=== PATIENT | female | born 1950 | race Caucasian/White ===

== ENCOUNTER → 2021-01-20 08:23 | Outpatient (BNVA) | payer MEDICARE, SELFPAY | PROVIDERS: Family Provider Family Medicine; PCP Family Medicine; Referring Provider Registered Nurse; Visit Provider Podiatrist Foot & Ankle Surgery | DX: M25.572 Pain in left ankle and joints of left foot (principal) | CPT/HCPCS: 73630 ==

== ENCOUNTER 2021-04-28 12:45 | Outpatient (CLI) | payer MEDICARE, SELFPAY | END 2021-04-28 12:46 | disposition home or self-care (01) | LOC: RAD 03-04 09:32 | PROVIDERS: PCP Family Medicine; Visit Provider Registered Nurse | DX: M79.672 Pain in left foot (principal); M21.612 Bunion of left foot | CPT/HCPCS: 73630 ==

== ENCOUNTER 2021-05-19 17:16 | Emergency (ER) | payer MEDICARE, SELFPAY ==
--- NOTE | 2021-05-19 17:30 | XRR_ITS ---
PROCEDURE INFORMATION: Exam: XR Chest Exam date and time: 05/19/2021 5:30 PM Age: 71 years old Clinical indication: Fever TECHNIQUE: Imaging protocol: XR of the chest. Views: 1 view. Total images: 1 COMPARISON: No relevant prior studies available. FINDINGS: Lungs: No visible active interstitial or alveolar airspace disease. Pleural spaces: Unremarkable. No pleural effusion. No pneumothorax. Heart/Mediastinum: Cardiac size upper limits of normal. Bones/joints: Mild scoliotic curvature. Osteopenia/osteoporosis. XR/XR chest 1V portable [id number] IMPRESSION: Nonacute.
[2021-05-19 17:33] VITALS: BP 126/66; PULSE 91; RESP 16; TEMP 37; O2SAT 95; BMI 16.5
--- NOTE | 2021-05-19 17:33 | W.ED.GENADLT ---
Documented by User: OCTAVIO Redding 05/19/21 20:14 HPI - General Adult General: Chief complaint: Urogenital-Female Stated complaint: FEVER, DEHYDRATION, AMS Time Seen by Provider: 05/19/21 17:30 History of Present Illness: HPI narrative: 71-year-old elderly lady brought in from home with concerns for confusion and fever. Review of the record notes that patient seen Dr. Becker, podiatry, on 28 April for a wound infection to the right johnson and left foot. At that time he prescribed home health for wound care and lower extremity wraps 3 times a week. Patient was seen by home health today and they found her to be confused prompting them to call EMS to transport her to the emergency department. Patient responds to questions but has a hard time finding the appropriate words to answer questions. Patient will follow commands loosely. Patient does have some asymmetry to the face on the right side. And patient also has some drifting noted to the right lower extremity. Patient does have just general body weakness though also. Patient is a poor historian and I have no other source of information. Associated symptoms: Reports confusion Review of Systems General: Reports: 10 or more systems reviewed and unremarkable except in HPI and below Neuro: Reports: weakness in extremities and confusion [facility] ED PFSH: Social History Smoking and tobacco status: never smoked Alcohol intake: current Alcohol intake frequency: 3 or more drinks per day Physical Exam Const: COMMON NORMALS: no acute distress and patient oriented x3 GENERAL APPEARANCE: cooperative HENMT: COMMON NORMALS: TM's normal bilaterally and Normal external nose present HEAD & SCALP: normal to inspection and other (Right side facial drooping) NOSE: Normal external nose present TYMPANIC MEMBRANE: TM's normal bilaterally MOUTH: Normal oral and palatal mucosa present THROAT: posterior oropharynx normal Eye: GENERAL EYE: appearance normal, both eyes and all related structures Neck/C-Spine: COMMON NORMALS: full ROM Lymph: LYMPHATIC: no lymphadenopathy noted Chest: COMMONS NORMALS: normal inspection of the chest Resp: COMMON NORMALS: normal respiratory effort EFFORT & INSPECTION: Yes able to speak in complete sentences Cardio: COMMON NORMALS: regular rate and regular rhythm RATE: regular rate RHYTHM: regular rhythm GI: COMMON NORMALS: non-tender : COMMON NORMALS: Yes no CVA tenderness BLADDER/KIDNEY EXAM: Yes no CVA tenderness Back/Pelvis: COMMON NORMALS: no CVA tenderness and thoracic and lumbar spine normal to inspection Extremity: NARRATIVE EXTREMITY EXAM: Weakness noted in the bilateral upper extremities, weakness noted in the right lower leg, Chronic wound noted between the third and fourth digit on the left foot with no significant redness surrounding the wound. Neuro: COMMON NORMALS: patient oriented x3 and moves all extremities Psych: COMMON NORMALS: cooperative Skin: COMMON NORMALS: no rashes or lesions noted GENERAL SKIN EXAM: no rashes or lesions noted Course ED course: 1799, discussed with Dr. Duncan he went and evaluated patient and feels patient either has a stroke syndrome, dementia or altered mental status due to infection. We will proceed with a ams/septic work-up and try to find a family member or other source of information. 1819, nursing was able to contact family, a daughter, they report that she has been having some increasing dementia over the last 6 months with episodes of confusion. They report that she has a history of alcoholism. 1944, reviewed abnormal EKG with Dr. Duncan and he recommended to review with Dr. Villatoro. baseline troponin 1900. 1951, believes EKG suggests NSTEMI at this time, ordered nitro paste 1/2 inch and aspirin. Vital Signs: Vital signs: Vital Signs Temperature 98.6 F 05/19/21 17:33 Pulse Rate 80 05/19/21 18:40 Respiratory Rate 15 05/19/21 18:40 Blood Pressure 126/64 05/19/21 18:40 Pulse Oximetry 94 05/19/21 18:40 MDM - General Adult MDM Narrative: Medical decision making narrative: Patient was brought in by EMS today for concerns of confusion and altered mental status. After talking with patient's daughter we found that patient has some problems with dementia and alcoholism. Review of the record noted that patient been being treated by Dr. Becker for a wound infection to the left foot. On exam wound was appearing to be healing. Patient was confused and concern for dementia versus infection related altered mental status versus stroke syndrome. Patient had some generalized body weakness drift in the right lower extremity and some asymmetry of the face. Vital signs were normal. Differential diagnosis includes stroke syndrome, dementia, sepsis, ACS. Laboratory values came back with a white count 13,000, urinalysis was clear, creatinine was 0.4, troponin was elevated at 1900, CK was elevated 1100, initial EKG noted a mild elevation in the ST in V1, V2, and V3 this was reviewed with Dr. Villatoro who is on-call for cardiology he felt the patient probably was more apt to be a NSTEMI. Patient will be admitted to care for NSTEMI and monitor for deterioration of condition. Dr. Ward was consulted and agreed to plan. Lab Data: Labs: Lab Results 05/19/21 05/19/21 05/19/21 Range/Units 18:10 18:30 18:30 WBC (4.0-10.0) 10^3/ uL RBC (4.1-5.3) 10^6/u L Hgb (11.5-15.3) g/dL Hct (37.0-47.0) % MCV (81-99) fL MCH (28.0-34.0) pg MCHC (30.0-36.0) g/dL RDW (12.1-15.1) % Plt Count (130-400) 10^3/c mm MPV (7.4-10.4) fL Neut % (Auto) % Lymph % (Auto) % Upton % (Auto) % Eos % (Auto) % Baso % (Auto) % Neut # (Auto) (1.8-7.7) 10^3/u L Lymph # (Auto) (0.8-4.8) 10^3/u L Upton # (Auto) (0.2-0.9) 10^3/u L Eos # (Auto) (0.0-0.8) 10^3/u L Baso # (Auto) (0.0-0.1) 10^3/u L Nucleated RBC % (a uto) % Nucleated RBCs # /100WBC PT (12.1-14.9) SECO NDS INR (0.8-1.2) APTT (23.9-36.7) SECO NDS Specimen Type Arterial Sample Site Brachial, right ABG pH 7.47 H (7.35-7.45) ABG pCO2 37.1 (35-45) mmHg ABG pO2 66.9 L (80.0-100.0) mmH g ABG HCO3 26.7 H (22-26) mmol/L ABG Base Excess 2.9 H (-2.0-2.0) mmol/ L Smith Test N/a Hematocrit 36.9 L (37-47) % O2 Delivery Device Room air FiO2 21.0 % Manufacturing Analyst ID glc Sodium (136-145) mmol/L Potassium (3.5-5.1) mmol/L Chloride (98-107) mmol/L Carbon Dioxide (22-29) mmol/L Anion Gap (5-19) BUN (8-23) mg/dL Creatinine (0.5-0.9) mg/dL GFR Calculation Glucose (65-115) mg/dL Calculated Osmolal ity (285-295) mOsm/k g Lactic Acid (0.5-2.2) mmol/L Calcium (8.5-10.5) mg/dL Total Bilirubin (0.15-1.2) mg/dL AST (0-32) U/L ALT (0-33) U/L Alkaline Phosphata se (35-105) IU/L Creatine Kinase (26-192) U/L Troponin T Baselin e (0-10) ng/L C-Reactive Protein (0.0-4.9) mg/L NT-Pro-B Natriuret Pep (0-125) pg/mL Total Protein (6.6-8.7) g/dL Albumin (3.5-5.2) g/dL Globulin (1.3-4.6) g/dL Urine Color Yellow (Yellow) Urine Appearance Clear (CLEAR) Urine pH 5 (5-7) Ur Specific Gravit y 1.020 (1.005-1.030) Urine Protein Trace (Negative) Urine Glucose (UA) Trace H (Normal) Urine Ketones 1+ H (Negative) Urine Blood Neg (Negative) Urine Nitrate Negative (Negative) Urine Bilirubin Neg (Negative) Urine Urobilinogen Norm (Negative) mg/dL Ur Leukocyte Destinee ase Negative (Negative) Urine RBC None (0-2) /hpf Urine WBC Rare (0-5) /hpf Ur Squamous Epith Cells None (0-5) /hpf Amorphous Sediment Not Reportable Urine Bacteria 1+ H (NONE) /hpf Hyaline Casts 0-4 H /lpf Coarse Granular Ca sts 0-4 H /lpf Urine Mucus Trace /hpf Ethyl Alcohol (0-10) mg/dL SARS-CoV-2 Ag (Rap id) Negative (Negative) 05/19/21 05/19/21 05/19/21 Range/Units 18:33 18:33 18:33 WBC 13.6 H (4.0-10.0) 10^3/ uL RBC 3.57 L (4.1-5.3) 10^6/u L Hgb 12.1 (11.5-15.3) g/dL Hct 36.2 L (37.0-47.0) % MCV 101.4 H (81-99) fL MCH 33.9 (28.0-34.0) pg MCHC 33.4 (30.0-36.0) g/dL RDW 13.4 (12.1-15.1) % Plt Count 211 (130-400) 10^3/c mm MPV 11.0 H (7.4-10.4) fL Neut % (Auto) 78.1 % Lymph % (Auto) 8.7 % Upton % (Auto) 12.5 % Eos % (Auto) 0.0 % Baso % (Auto) 0.1 % Neut # (Auto) 10.64 H (1.8-7.7) 10^3/u L Lymph # (Auto) 1.2 (0.8-4.8) 10^3/u L Upton # (Auto) 1.7 H (0.2-0.9) 10^3/u L Eos # (Auto) 0.0 (0.0-0.8) 10^3/u L Baso # (Auto) 0.0 (0.0-0.1) 10^3/u L Nucleated RBC % (a uto) 0 % Nucleated RBCs # 0.0 /100WBC PT (12.1-14.9) SECO NDS INR (0.8-1.2) APTT (23.9-36.7) SECO NDS Specimen Type Sample Site ABG pH (7.35-7.45) ABG pCO2 (35-45) mmHg ABG pO2 (80.0-100.0) mmH g ABG HCO3 (22-26) mmol/L ABG Base Excess (-2.0-2.0) mmol/ L Smith Test Hematocrit (37-47) % O2 Delivery Device FiO2 % Manufacturing Analyst ID Sodium 131 L (136-145) mmol/L Potassium 4.1 (3.5-5.1) mmol/L Chloride 98 (98-107) mmol/L Carbon Dioxide 19 L (22-29) mmol/L Anion Gap 18.1 (5-19) BUN 11 (8-23) mg/dL Creatinine 0.4 L (0.5-0.9) mg/dL GFR Calculation Not Reportable Glucose 94 (65-115) mg/dL Calculated Osmolal ity 271 L (285-295) mOsm/k g Lactic Acid (0.5-2.2) mmol/L Calcium 8.2 L (8.5-10.5) mg/dL Total Bilirubin 0.6 (0.15-1.2) mg/dL AST 128 H (0-32) U/L ALT 23 (0-33) U/L Alkaline Phosphata se 61 (35-105) IU/L Creatine Kinase 1170 H* (26-192) U/L Troponin T Baselin e 1976 H* (0-10) ng/L C-Reactive Protein 7.2 H (0.0-4.9) mg/L NT-Pro-B Natriuret Pep 35698 H (0-125) pg/mL Total Protein 5.9 L (6.6-8.7) g/dL Albumin 3.4 L (3.5-5.2) g/dL Globulin 2.5 (1.3-4.6) g/dL Urine Color (Yellow) Urine Appearance (CLEAR) Urine pH (5-7) Ur Specific Gravit y (1.005-1.030) Urine Protein (Negative) Urine Glucose (UA) (Normal) Urine Ketones (Negative) Urine Blood (Negative) Urine Nitrate (Negative) Urine Bilirubin (Negative) Urine Urobilinogen (Negative) mg/dL Ur Leukocyte Destinee ase (Negative) Urine RBC (0-2) /hpf Urine WBC (0-5) /hpf Ur Squamous Epith Cells (0-5) /hpf Amorphous Sediment Urine Bacteria (NONE) /hpf Hyaline Casts /lpf Coarse Granular Ca sts /lpf Urine Mucus /hpf Ethyl Alcohol < 10 (0-10) mg/dL SARS-CoV-2 Ag (Rap id) (Negative) 05/19/21 05/19/21 Range/Units 19:04 19:04 WBC (4.0-10.0) 10^3/ uL RBC (4.1-5.3) 10^6/u L Hgb (11.5-15.3) g/dL Hct (37.0-47.0) % MCV (81-99) fL MCH (28.0-34.0) pg MCHC (30.0-36.0) g/dL RDW (12.1-15.1) % Plt Count (130-400) 10^3/c mm MPV (7.4-10.4) fL Neut % (Auto) % Lymph % (Auto) % Upton % (Auto) % Eos % (Auto) % Baso % (Auto) % Neut # (Auto) (1.8-7.7) 10^3/u L Lymph # (Auto) (0.8-4.8) 10^3/u L Upton # (Auto) (0.2-0.9) 10^3/u L Eos # (Auto) (0.0-0.8) 10^3/u L Baso # (Auto) (0.0-0.1) 10^3/u L Nucleated RBC % (a uto) % Nucleated RBCs # /100WBC PT 14.10 (12.1-14.9) SECO NDS INR 1.06 (0.8-1.2) APTT 37.6 H (23.9-36.7) SECO NDS Specimen Type Sample Site ABG pH (7.35-7.45) ABG pCO2 (35-45) mmHg ABG pO2 (80.0-100.0) mmH g ABG HCO3 (22-26) mmol/L ABG Base Excess (-2.0-2.0) mmol/ L Smith Test Hematocrit (37-47) % O2 Delivery Device FiO2 % Manufacturing Analyst ID Sodium (136-145) mmol/L Potassium (3.5-5.1) mmol/L Chloride (98-107) mmol/L Carbon Dioxide (22-29) mmol/L Anion Gap (5-19) BUN (8-23) mg/dL Creatinine (0.5-0.9) mg/dL GFR Calculation Glucose (65-115) mg/dL Calculated Osmolal ity (285-295) mOsm/k g Lactic Acid 1.4 (0.5-2.2) mmol/L Calcium (8.5-10.5) mg/dL Total Bilirubin (0.15-1.2) mg/dL AST (0-32) U/L ALT (0-33) U/L Alkaline Phosphata se (35-105) IU/L Creatine Kinase (26-192) U/L Troponin T Baselin e (0-10) ng/L C-Reactive Protein (0.0-4.9) mg/L NT-Pro-B Natriuret Pep (0-125) pg/mL Total Protein (6.6-8.7) g/dL Albumin (3.5-5.2) g/dL Globulin (1.3-4.6) g/dL Urine Color (Yellow) Urine Appearance (CLEAR) Urine pH (5-7) Ur Specific Gravit y (1.005-1.030) Urine Protein (Negative) Urine Glucose (UA) (Normal) Urine Ketones (Negative) Urine Blood (Negative) Urine Nitrate (Negative) Urine Bilirubin (Negative) Urine Urobilinogen (Negative) mg/dL Ur Leukocyte Destinee ase (Negative) Urine RBC (0-2) /hpf Urine WBC (0-5) /hpf Ur Squamous Epith Cells (0-5) /hpf Amorphous Sediment Urine Bacteria (NONE) /hpf Hyaline Casts /lpf Coarse Granular Ca sts /lpf Urine Mucus /hpf Ethyl Alcohol (0-10) mg/dL SARS-CoV-2 Ag (Rap id) (Negative) EKG Data^: EKG 1: Attestation: I personally reviewed and interpreted this EKG as follows: (190, EKG shows a sinus rhythm, T wave abnormality noted in V1 V2 and V3, old inferior myocardial infarction is noted per computer interpretation, no ectopy is noted. Regular rate at 90 bpm is noted. No prior EKG is available for comparison at this time.) Computer generated interpretation: Chest X-Ray 05/19/21 17:30 IMPRESSION: Nonacute. Head CT 05/19/21 17:48 IMPRESSION: No evidence of active or acute intracranial pathologic process, hemorrhage, or trauma. Radiation Dose CTDIVOL = (mGy): DLP = 816.67 (mGy-cm) Foot X-Ray 05/19/21 18:19 IMPRESSION: No radiographically visible acute osseous abnormality. Discharge Plan Discharge Patient Disposition: Admitted As Inpatient Clinical Impression: Non-ST elevation [place] (NSTEMI), Dementia, Confusion, Elevated brain natriuretic peptide (BNP) level, Acute non-ST elevation myocardial infarction (NSTEMI) Chronic dementia Qualifiers: Dementia behavioral disturbance: without behavioral disturbance Qualified Code(s): F03.90 - Unspecified dementia without behavioral disturbance Condition: Stable Coding Level of Care Code ED Audiology Assistant for Chg Fwd Exam Comprehensive Documented by User: Med Duncan MD 05/19/21 20:10 HPI - General Adult General: Chief complaint: Urogenital-Female Stated complaint: FEVER, DEHYDRATION, AMS Time Seen by Provider: 05/19/21 17:30 PFSH ED PFSH: Social History Smoking and tobacco status: never smoked Alcohol intake: current Alcohol intake frequency: 3 or more drinks per day Course Consultations: Consultation #1: I discussed at length with . He request the patient be given Lovenox 40 mg subcu. He will see patient write additional orders Time: 20:09 Vital Signs: Vital signs: Vital Signs Temperature 98.6 F 05/19/21 17:33 Pulse Rate 80 05/19/21 18:40 Respiratory Rate 15 05/19/21 18:40 Blood Pressure 126/64 05/19/21 18:40 Pulse Oximetry 94 05/19/21 18:40 MDM - General Adult Lab Data: Labs: Lab Results 05/19/21 05/19/21 05/19/21 Range/Units 18:10 18:30 18:30 WBC (4.0-10.0) 10^3/ uL RBC (4.1-5.3) 10^6/u L Hgb (11.5-15.3) g/dL Hct (37.0-47.0) % MCV (81-99) fL MCH (28.0-34.0) pg MCHC (30.0-36.0) g/dL RDW (12.1-15.1) % Plt Count (130-400) 10^3/c mm MPV (7.4-10.4) fL Neut % (Auto) % Lymph % (Auto) % Upton % (Auto) % Eos % (Auto) % Baso % (Auto) % Neut # (Auto) (1.8-7.7) 10^3/u L Lymph # (Auto) (0.8-4.8) 10^3/u L Upton # (Auto) (0.2-0.9) 10^3/u L Eos # (Auto) (0.0-0.8) 10^3/u L Baso # (Auto) (0.0-0.1) 10^3/u L Nucleated RBC % (a uto) % Nucleated RBCs # /100WBC PT (12.1-14.9) SECO NDS INR (0.8-1.2) APTT (23.9-36.7) SECO NDS Specimen Type Arterial Sample Site Brachial, right ABG pH 7.47 H (7.35-7.45) ABG pCO2 37.1 (35-45) mmHg ABG pO2 66.9 L (80.0-100.0) mmH g ABG HCO3 26.7 H (22-26) mmol/L ABG Base Excess 2.9 H (-2.0-2.0) mmol/ L Smith Test N/a Hematocrit 36.9 L (37-47) % O2 Delivery Device Room air FiO2 21.0 % Manufacturing Analyst ID glc Sodium (136-145) mmol/L Potassium (3.5-5.1) mmol/L Chloride (98-107) mmol/L Carbon Dioxide (22-29) mmol/L Anion Gap (5-19) BUN (8-23) mg/dL Creatinine (0.5-0.9) mg/dL GFR Calculation Glucose (65-115) mg/dL Calculated Osmolal ity (285-295) mOsm/k g Lactic Acid (0.5-2.2) mmol/L Calcium (8.5-10.5) mg/dL Total Bilirubin (0.15-1.2) mg/dL AST (0-32) U/L ALT (0-33) U/L Alkaline Phosphata se (35-105) IU/L Creatine Kinase (26-192) U/L Troponin T Baselin e (0-10) ng/L C-Reactive Protein (0.0-4.9) mg/L NT-Pro-B Natriuret Pep (0-125) pg/mL Total Protein (6.6-8.7) g/dL Albumin (3.5-5.2) g/dL Globulin (1.3-4.6) g/dL Urine Color Yellow (Yellow) Urine Appearance Clear (CLEAR) Urine pH 5 (5-7) Ur Specific Gravit y 1.020 (1.005-1.030) Urine Protein Trace (Negative) Urine Glucose (UA) Trace H (Normal) Urine Ketones 1+ H (Negative) Urine Blood Neg (Negative) Urine Nitrate Negative (Negative) Urine Bilirubin Neg (Negative) Urine Urobilinogen Norm (Negative) mg/dL Ur Leukocyte Destinee ase Negative (Negative) Urine RBC None (0-2) /hpf Urine WBC Rare (0-5) /hpf Ur Squamous Epith Cells None (0-5) /hpf Amorphous Sediment Not Reportable Urine Bacteria 1+ H (NONE) /hpf Hyaline Casts 0-4 H /lpf Coarse Granular Ca sts 0-4 H /lpf Urine Mucus Trace /hpf Ethyl Alcohol (0-10) mg/dL SARS-CoV-2 Ag (Rap id) Negative (Negative) 05/19/21 05/19/21 05/19/21 Range/Units 18:33 18:33 18:33 WBC 13.6 H (4.0-10.0) 10^3/ uL RBC 3.57 L (4.1-5.3) 10^6/u L Hgb 12.1 (11.5-15.3) g/dL Hct 36.2 L (37.0-47.0) % MCV 101.4 H (81-99) fL MCH 33.9 (28.0-34.0) pg MCHC 33.4 (30.0-36.0) g/dL RDW 13.4 (12.1-15.1) % Plt Count 211 (130-400) 10^3/c mm MPV 11.0 H (7.4-10.4) fL Neut % (Auto) 78.1 % Lymph % (Auto) 8.7 % Upton % (Auto) 12.5 % Eos % (Auto) 0.0 % Baso % (Auto) 0.1 % Neut # (Auto) 10.64 H (1.8-7.7) 10^3/u L Lymph # (Auto) 1.2 (0.8-4.8) 10^3/u L Upton # (Auto) 1.7 H (0.2-0.9) 10^3/u L Eos # (Auto) 0.0 (0.0-0.8) 10^3/u L Baso # (Auto) 0.0 (0.0-0.1) 10^3/u L Nucleated RBC % (a uto) 0 % Nucleated RBCs # 0.0 /100WBC PT (12.1-14.9) SECO NDS INR (0.8-1.2) APTT (23.9-36.7) SECO NDS Specimen Type Sample Site ABG pH (7.35-7.45) ABG pCO2 (35-45) mmHg ABG pO2 (80.0-100.0) mmH g ABG HCO3 (22-26) mmol/L ABG Base Excess (-2.0-2.0) mmol/ L Smith Test Hematocrit (37-47) % O2 Delivery Device FiO2 % Manufacturing Analyst ID Sodium 131 L (136-145) mmol/L Potassium 4.1 (3.5-5.1) mmol/L Chloride 98 (98-107) mmol/L Carbon Dioxide 19 L (22-29) mmol/L Anion Gap 18.1 (5-19) BUN 11 (8-23) mg/dL Creatinine 0.4 L (0.5-0.9) mg/dL GFR Calculation Not Reportable Glucose 94 (65-115) mg/dL Calculated Osmolal ity 271 L (285-295) mOsm/k g Lactic Acid (0.5-2.2) mmol/L Calcium 8.2 L (8.5-10.5) mg/dL Total Bilirubin 0.6 (0.15-1.2) mg/dL AST 128 H (0-32) U/L ALT 23 (0-33) U/L Alkaline Phosphata se 61 (35-105) IU/L Creatine Kinase 1170 H* (26-192) U/L Troponin T Baselin e 1976 H* (0-10) ng/L C-Reactive Protein 7.2 H (0.0-4.9) mg/L NT-Pro-B Natriuret Pep 93537 H (0-125) pg/mL Total Protein 5.9 L (6.6-8.7) g/dL Albumin 3.4 L (3.5-5.2) g/dL Globulin 2.5 (1.3-4.6) g/dL Urine Color (Yellow) Urine Appearance (CLEAR) Urine pH (5-7) Ur Specific Gravit y (1.005-1.030) Urine Protein (Negative) Urine Glucose (UA) (Normal) Urine Ketones (Negative) Urine Blood (Negative) Urine Nitrate (Negative) Urine Bilirubin (Negative) Urine Urobilinogen (Negative) mg/dL Ur Leukocyte Destinee ase (Negative) Urine RBC (0-2) /hpf Urine WBC (0-5) /hpf Ur Squamous Epith Cells (0-5) /hpf Amorphous Sediment Urine Bacteria (NONE) /hpf Hyaline Casts /lpf Coarse Granular Ca sts /lpf Urine Mucus /hpf Ethyl Alcohol < 10 (0-10) mg/dL SARS-CoV-2 Ag (Rap id) (Negative) 05/19/21 05/19/21 Range/Units 19:04 19:04 WBC (4.0-10.0) 10^3/ uL RBC (4.1-5.3) 10^6/u L Hgb (11.5-15.3) g/dL Hct (37.0-47.0) % MCV (81-99) fL MCH (28.0-34.0) pg MCHC (30.0-36.0) g/dL RDW (12.1-15.1) % Plt Count (130-400) 10^3/c mm MPV (7.4-10.4) fL Neut % (Auto) % Lymph % (Auto) % Upton % (Auto) % Eos % (Auto) % Baso % (Auto) % Neut # (Auto) (1.8-7.7) 10^3/u L Lymph # (Auto) (0.8-4.8) 10^3/u L Upton # (Auto) (0.2-0.9) 10^3/u L Eos # (Auto) (0.0-0.8) 10^3/u L Baso # (Auto) (0.0-0.1) 10^3/u L Nucleated RBC % (a uto) % Nucleated RBCs # /100WBC PT 14.10 (12.1-14.9) SECO NDS INR 1.06 (0.8-1.2) APTT 37.6 H (23.9-36.7) SECO NDS Specimen Type Sample Site ABG pH (7.35-7.45) ABG pCO2 (35-45) mmHg ABG pO2 (80.0-100.0) mmH g ABG HCO3 (22-26) mmol/L ABG Base Excess (-2.0-2.0) mmol/ L Smith Test Hematocrit (37-47) % O2 Delivery Device FiO2 % Manufacturing Analyst ID Sodium (136-145) mmol/L Potassium (3.5-5.1) mmol/L Chloride (98-107) mmol/L Carbon Dioxide (22-29) mmol/L Anion Gap (5-19) BUN (8-23) mg/dL Creatinine (0.5-0.9) mg/dL GFR Calculation Glucose (65-115) mg/dL Calculated Osmolal ity (285-295) mOsm/k g Lactic Acid 1.4 (0.5-2.2) mmol/L Calcium (8.5-10.5) mg/dL Total Bilirubin (0.15-1.2) mg/dL AST (0-32) U/L ALT (0-33) U/L Alkaline Phosphata se (35-105) IU/L Creatine Kinase (26-192) U/L Troponin T Baselin e (0-10) ng/L C-Reactive Protein (0.0-4.9) mg/L NT-Pro-B Natriuret Pep (0-125) pg/mL Total Protein (6.6-8.7) g/dL Albumin (3.5-5.2) g/dL Globulin (1.3-4.6) g/dL Urine Color (Yellow) Urine Appearance (CLEAR) Urine pH (5-7) Ur Specific Gravit y (1.005-1.030) Urine Protein (Negative) Urine Glucose (UA) (Normal) Urine Ketones (Negative) Urine Blood (Negative) Urine Nitrate (Negative) Urine Bilirubin (Negative) Urine Urobilinogen (Negative) mg/dL Ur Leukocyte Destinee ase (Negative) Urine RBC (0-2) /hpf Urine WBC (0-5) /hpf Ur Squamous Epith Cells (0-5) /hpf Amorphous Sediment Urine Bacteria (NONE) /hpf Hyaline Casts /lpf Coarse Granular Ca sts /lpf Urine Mucus /hpf Ethyl Alcohol (0-10) mg/dL SARS-CoV-2 Ag (Rap id) (Negative) EKG Data^: EKG 1: Computer generated interpretation: Chest X-Ray 05/19/21 17:30 IMPRESSION: Nonacute. Head CT 05/19/21 17:48 IMPRESSION: No evidence of active or acute intracranial pathologic process, hemorrhage, or trauma. Radiation Dose CTDIVOL = (mGy): DLP = 816.67 (mGy-cm) Foot X-Ray 05/19/21 18:19 IMPRESSION: No radiographically visible acute osseous abnormality. Discharge Plan Discharge Patient Disposition: Admitted As Inpatient Clinical Impression: Non-ST elevation [place] (NSTEMI), Dementia, Confusion, Elevated brain natriuretic peptide (BNP) level, Acute non-ST elevation myocardial infarction (NSTEMI) Chronic dementia Qualifiers: Dementia behavioral disturbance: without behavioral disturbance Qualified Code(s): F03.90 - Unspecified dementia without behavioral disturbance Condition: Stable Coding Level of Care Code ED Audiology Assistant for [facility] Fwd Exam Comprehensive
--- NOTE | 2021-05-19 17:48 | CTR_ITS ---
PROCEDURE INFORMATION: Exam: CT Head Without Contrast Exam date and time: 05/19/2021 5:48 PM Age: 71 years old Clinical indication: Altered mental status/memory loss; Additional info: AMS TECHNIQUE: Imaging protocol: Computed tomography of the head without contrast. Total images: 208 Radiation optimization: All CT scans at this facility use at least one of these dose optimization techniques: automated exposure control; mA and/or kV adjustment per patient size (includes targeted exams where dose is matched to clinical indication); or iterative reconstruction. COMPARISON: No relevant prior studies available. RADIATION DOSE METRICS: Total DLP (mGy-cm): 816.67 FINDINGS: Brain: No evidence of active or acute intracranial pathologic process, hemorrhage, or trauma. Moderate small vessel ischemic disease with senile periventricular leukomalacia. No hyperdense MCA or insular ribbon sign. No mass effect. No midline shift. No cerebral edema. Cerebral and cerebellar atrophy with ventricular dilatation greater than that anticipated for patient's chronological age. Cerebral arteriosclerosis. Cerebral ventricles: No ventriculomegaly. Paranasal sinuses: Visualized sinuses are unremarkable. No fluid levels. Mastoid air cells: Visualized mastoid air cells are well aerated. Bones/joints: Unremarkable. No acute fracture. Soft tissues: Unremarkable. CT/CT head wo con* [id number] IMPRESSION: No evidence of active or acute intracranial pathologic process, hemorrhage, or trauma. Radiation Dose CTDIVOL = (mGy): DLP = 816.67 (mGy-cm)
[2021-05-19] MEDS: sodium chloride 0.9% 500 ML 999 ML IV (17:50)
--- NOTE | 2021-05-19 18:02 | ECG_ITS ---
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1950 Requested By: Gilmer Monge Order Number: [id number] Reading MD: YONAS MATTHEW Measurements Intervals [place] Rate: 90 P: 48 IN: 140 QRS: 0 QRSD: 100 T: 95 QT: 406 QTc: 497 Interpretive Statements SINUS RHYTHM INFERIOR MYOCARDIAL INFARCTION [40+ ms Q WAVE AND/OR ST/T ABNORMALITY IN II/aVF], PROBABLY OLD MODERATE T-WAVE ABNORMALITY, CONSIDER ANTERIOR ISCHEMIA [-0.1+ mV T WAVE IN V3/V4] No previous ECG available for comparison Electronically Signed On 05-19-2021 23:33:45 CDT by YONAS MATTHEW [email or web address] of [email or web address] medical centerJohn's Incredible [email or web address] Companyking's daughters [facility] [email or web address]/store/[id number] f
--- NOTE | 2021-05-19 18:19 | XRR_ITS ---
PROCEDURE INFORMATION: Exam: XR Left Foot Exam date and time: 05/19/2021 6:19 PM Age: 71 years old Clinical indication: Other: Wound infection TECHNIQUE: Imaging protocol: XR Left foot. Views: 3 or more views. Total images: 3 COMPARISON: CR XR foot LT min 3V* [id number] 04/28/2021 10:20 AM FINDINGS: Bones/joints: No radiographically visible acute osseous abnormality. No radiographically visible osteolytic destructive process. Osteoporosis. Mild primary osteoarthritis of the hallux. Hammertoe deformities. Hallux valgus. Soft tissues: Soft tissues without evidence of edema, swelling, contusion, emphysema, or radiopaque foreign body. XR/XR foot LT min 3V* [id number] IMPRESSION: No radiographically visible acute osseous abnormality.
[2021-05-19 18:22] LABS: ABG PCO2 37.1 mmHg (35-45); ABG PH Result 7.47 (7.35-7.45); Arterial Blood Gas Hematocrit 36.9 % (37-47); Base Excess ABG 2.9 mmol/L (-2.0-2.0); Blood Gas Operator Identificat glc; Blood Gas Sample Site Brachial, right; Blood Gas Sample Type Arterial; HCO3 ABG 26.7 mmol/L (22-26); Oxygen Device ROOM AIR; PO2 ABG 66.9 mmHg (80.0-100.0)
--- NOTE | 2021-05-19 18:30 | PC.NURSE ---
This RN spoke with pt's daughter, who sts for the last 6 months pt has had a progressive mental decline, with increased periods of confusion, increased falls r/t alcoholism. She sts the pt has been avoiding the family b/c she is afraid they are going to put her in assisted living, which is what they are trying to do because she cannot take care of herself or make healthy choices. The daughter says they contacted social work coordinator recently and are trying to get her help.
[2021-05-19 18:40] VITALS: BP 126/64; PULSE 80; RESP 15; O2SAT 94
[2021-05-19 18:58] LABS: Basophils % 0.1 %; Hematocrit 36.2 % (37.0-47.0); Hemoglobin 12.1 g/dL (11.5-15.3); Lymphocytes # 1.2 10^3/uL (0.8-4.8); Lymphocytes % 8.7 %; Mean Corpuscular HGB Conc 33.4 g/dL (30.0-36.0); Mean Corpuscular Hemoglobin 33.9 pg (28.0-34.0); Mean Corpuscular Volume 101.4 fL (81-99); Monocytes # 1.7 10^3/uL (0.2-0.9); Monocytes % 12.5 %; Neutrophils # 10.64 10^3/uL (1.8-7.7); Neutrophils % 78.1 %; Nucleated Red Blood Cells % 0 %; Platelet Count 211 10^3/cmm (130-400); Red Blood Count 3.57 10^6/uL (4.1-5.3); Red Cell Distribution Width 13.4 % (12.1-15.1); White Blood Count 13.6 10^3/uL (4.0-10.0)
--- NOTE | 2021-05-19 19:07 | PC.NURSE ---
Report from EMANUEL Flaherty
[2021-05-19 19:12] LABS: Glucose Urine UA Trace (Normal); Protein Urine Trace (Negative); Urine Appearance Clear (CLEAR); Urine Color Yellow (Yellow); pH Urine 5 (5-7)
[2021-05-19 19:13] LABS: Add Urine Culture? No; Add Urine Microscopic? YES; Bacteria Urine 1+ /hpf; Bilirubin Urine Neg (Negative); Blood Urine Neg (Negative); Coarse Granular Casts Urine 0-4 /lpf; Hyaline Casts Urine 0-4 /lpf; Ketones Urine 1+ (Negative); Leukocyte Esterase Urine Negative (Negative); Mucus Urine TRACE /hpf; Nitrate Urine Negative (Negative); Urobilinogen Urine Norm (Negative); WBC Urine RARE /hpf (0-5)
[2021-05-19 19:24] LABS: INR 1.06 (0.8-1.2)
[2021-05-19 19:25] LABS: SARS Covid-2 Antigen Negative (Negative)
[2021-05-19 19:25] LABS: Partial Thromboplastin Time 37.6 SECONDS (23.9-36.7)
[2021-05-19 19:30] LABS: Lactic Sepsis W/Reflex 1.4 mmol/L (0.5-2.2)
[2021-05-19 19:34] LABS: Troponin(5th) Baseline 1976 ng/L (0-10)
[2021-05-19 19:51] LABS: Alanine Aminotransferase 23 U/L (0-33); Albumin Level 3.4 g/dL (3.5-5.2); Alkaline Phosphatase 61 IU/L (35-105); Blood Urea Nitrogen 11 mg/dL (8-23); C Reactive Protein 7.2 mg/L (0.0-4.9); Calcium 8.2 mg/dL (8.5-10.5); Carbon Dioxide 19 mmol/L (22-29); Chloride 98 mmol/L (98-107); Globulin 2.5 g/dL (1.3-4.6); Glucose 94 mg/dL (65-115); NT Pro B Type Natriuretic Pept 12884 pg/mL (0-125); Total Bilirubin 0.6 mg/dL (0.15-1.2); Total Protein 5.9 g/dL (6.6-8.7)
[2021-05-19 19:57] LABS: Osmolality Calculated 271 mOsm/kg (285-295); Sodium 131 mmol/L (136-145)
[2021-05-19 19:58] LABS: Creatinine Clr Calc Pharmacy 40.3623
[2021-05-19 20:00] LABS: Alcohol Level < 10 mg/dL (0-10); Anion Gap 18.1 (5-19); Aspartate Amino Transferase 128 U/L (0-32); Creatine Phosphokinase 1170 U/L (26-192); Potassium 4.1 mmol/L (3.5-5.1)
[2021-05-19] MEDS: aspirin 81 mg Chew Tablet 324 MG PO (20:01)
[2021-05-19] MEDS: nitroglycerin 1 gm/inch oint Pkt 0.5 INCH TOPICAL (20:01)
--- NOTE | 2021-05-19 20:02 | ECG_ITS ---
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1950 Requested By: Gilmer Monge Order Number: [id number] Reading MD: YONAS MATTHEW Measurements Intervals [place] Rate: 88 P: 53 IL: 170 QRS: 1 QRSD: 97 T: 85 QT: 407 QTc: 495 Interpretive Statements SINUS RHYTHM POSSIBLE LEFT ATRIAL ENLARGEMENT [-0.1mV P WAVE IN V1/V2] POSSIBLE INFERIOR MYOCARDIAL INFARCTION [30 ms Q WAVE IN II/aVF], PROBABLY OLD MARKED T-WAVE ABNORMALITY, CONSIDER ANTERIOR ISCHEMIA [-0.5+ mV T WAVE IN V3/V4] Compared to ECG 05/19/2021 18:58:03 No significant changes Electronically Signed On 05-19-2021 23:36:29 CDT by YONAS MATTHEW [id number]
--- NOTE | 2021-05-19 20:15 | PC.NURSE ---
Daughter arrived in room. Dr. Ward at bedside.
[2021-05-19 20:19] VITALS: BP 141/87; PULSE 84; RESP 16; O2SAT 95
--- NOTE | 2021-05-19 20:34 | PM.HP ---
Providers/Chief Complaint Primary Care Provider: Saritha Peace DO Chief Complaint: FEVER, DEHYDRATION, AMS History of Present Illness Ada Manning is a 71 year old female who has history of severe dementia, presented today with chief complaint of worsening confusion. Daughter is at the bedside who is endorsing that because of her worsening functional status she was brought near her family. On Wednesday her son took her out for lunch and at that time she seemed to be around her baseline. And today when home health nurse checked on her she seemed very confused. She was sent to the hospital for evaluation. Patient is not able to provide any valuable information. She is denying chest pain, shortness of breath nausea or vomiting. She follows up with podiatry for her chronic wounds. Home health nurse checks on her wounds on weekly basis. Her last well-known time was around Wednesday. Diagnostics in the ER revealed right-sided weakness, right-sided facial droop, non-ST segment elevation [place] without ischemic or infarct changes, she seemed very confused only oriented to herself, not a candidate for any intervention troponin 1900, Covid antigen negative, she saturating well on room air, afebrile, CT head unremarkable, chest x-ray, UA unremarkable Review of Systems General: Reports: ROS unobtainable due to medical condition (Dementia) Medications/Allergies Home Medications Medication Instructions Recorded Confirmed Last Taken Type acamprosate 333 mg tablet,delayed 333 mg PO TID tab 01/20/21 05/19/21 Unknown History release bupropion HCl 75 mg tablet 75 mg PO BID 01/20/21 05/19/21 Unknown History lisinopril 10 mg tablet 10 mg PO DAILY 01/20/21 05/19/21 Unknown History meloxicam 15 mg tablet 15 mg PO DAILY #30 tab 01/20/21 05/19/21 Unknown Rx simvastatin 20 mg tablet 20 mg PO DAILY 01/20/21 05/19/21 Unknown History trazodone 50 mg tablet 50 mg PO DAILY 01/20/21 05/19/21 Unknown History ciprofloxacin HCl 500 mg tablet 500 mg PO BID #14 tab 04/28/21 05/19/21 Unknown Rx clindamycin HCl 300 mg capsule 300 mg PO TID #21 cap 04/28/21 05/19/21 Unknown Rx Allergies Allergy/AdvReac Type Severity Reaction Status Date / Time Penicillins Allergy unknown Verified 04/28/21 09:53 PFSH Acute PFSH: Medical History Chronic dementia Chronic ulcer of left foot with fat layer exposed CVA (cerebral vascular accident) Dementia Hypercholesteremia Hypertension Leg wound, left PVD (peripheral vascular disease) Right arm fracture Surgical History History of surgery on arm Social History Smoking and tobacco status: never smoked Alcohol intake: current Alcohol intake frequency: 3 or more drinks per day Vitals/I&O/Wt Last Vital Signs Temp 98.6 F 05/19/21 17:33 Pulse 84 05/19/21 20:19 Resp 16 05/19/21 20:19 BP 141/87 05/19/21 20:19 Pulse Ox 95 05/19/21 20:19 05/19/21 05/19/21 05/19/21 06:59 14:59 22:59 Intake Total 500 / 500 Balance 500 / 500 Weight last 48 hrs Weight 40.823 kg Physical Exam Narrative: EXAM NARRATIVE: Frail elderly female She is keeping her left eye closed, Right-sided facial droop, flat right nasolabial fold Weakness of right arm and right leg noted, EOMI, PERRLA Oriented to herself only S1, S2 no murmur appreciated Clinically looks dehydrated No acute respite distress no audible stridor or wheezing Lower extremity multiple laceration and wounds, no active cellulitis No joint swelling Urinary Catheter Management^: Mendoza: Cath Placed During This Visit: yes Urinary Catheter Date of Insertion: 05/19/21 Urinary Catheter Time of Insertion: 18:39 Data : 05/19/21 18:33 05/19/21 18:33 Micro: Microbiology 05/19/21 18:33 Blood Culture - Preliminary Blood SPECIMEN COLLECTED 05/19/21 18:33 Blood Culture - Preliminary Blood SPECIMEN COLLECTED A&P Assessment and plan (1) Non-ST elevation [place] (NSTEMI): (2) Confusion: Status: Acute (3) Acute non-ST elevation myocardial infarction (NSTEMI): Status: Acute Additional A&P Information Acute stroke NIH 6 PT/OT eval Start dual antiplatelet therapy and high-dose statins Please reevaluate in the morning if MRI would have any merit for evaluation of her stroke which might not change her management This seems to be the etiology of acute worsening of her confusion, last known well time around Wednesday Not a TPA candidate Non-STEMI Considering dementia not a candidate for any intervention as per ER discussion with cardiology We will start Lovenox therapeutic regimen Request echo in the morning Currently hemodynamically stable Baseline dementia, Acute worsening secondary to stroke Chest x-ray, UA unremarkable Full code goals of care discussed with the daughter who is her DPOA We will keep her on thickened pur?ed diet for now PT evaluation DVT prophylaxis currently on therapeutic Lovenox Attestations Medical Necessity Statement*: Anticipating stay in the hospital cross more than 2 midnights for management of NSTEMI and work-up of stroke Time Spent in Patient Care: 16 - 35 minutes Coding Level of Care Code Acute Biometrics Experimentalist for Wang Fwd Diagnoses Non-ST elevation IA (NSTEMI) I21.4 Confusion R41.0 Acute non-ST elevation myocardial infarction (NSTEMI) I21.4
[2021-05-19 21:59] VITALS: BP 144/83; PULSE 82; RESP 16; O2SAT 95
[2021-05-19 22:01] LABS: Troponin 5 2HR 1629 ng/L (0-10)
[2021-05-19] MEDS: enoxaparin 40 mg/0.4 mL Syringe SUBCUT (22:25)
--- NOTE | 2021-05-19 22:31 | PC.NURSE ---
Pt resting, eyes closed; easily awakened. Pt denies needs at this time. Will continue to monitor.
[2021-05-19 22:59] LABS: Thyroid Stimulating Hormone 0.72 uIU/mL (0.27-4.20); Vitamin B12 639 pg/mL (232-1245)
[2021-05-19 23:08] VITALS: BP 137/80; PULSE 83; RESP 16; O2SAT 95
[2021-05-20 01:08] LABS: Troponin 5 6HR 1256 ng/L (0-10)
[2021-05-20 01:17] VITALS: BP 144/74; PULSE 80; RESP 16; O2SAT 92
[2021-05-20 03:09] VITALS: BP 135/76; PULSE 81; RESP 16; O2SAT 95
--- NOTE | 2021-05-20 03:29 | PC.NURSE ---
Obtained verbal consent from daughter Jorge Fernando via telephone to transfer pt to [facility]. Verbal phone consent verified by this RN and second RN Yazmin Cloud.
[2021-05-20 04:14] VITALS: BP 147/79; PULSE 79; RESP 16; O2SAT 95
--- NOTE | 2021-05-20 07:02 | P.TS_ITS ---
Transfer Summary Providers Date of Discharge: 05/20/21 Primary Care Provider: Saritha Peace DO Anticipated Date of Transfer: Anticipated date of transfer: 05/20/21 Receiving Facility & Provider: Receiving Provider: [] Receiving facility: [] Diagnoses at Discharge Discharge Diagnosis (1) Non-ST elevation [place] (NSTEMI): (2) Confusion: Status: Acute (3) Acute non-ST elevation myocardial infarction (NSTEMI): Status: Acute Reason for Visit Reason for Visit: FEVER, DEHYDRATION, AMS Hospital Course Hospital Course Ada Manning is a 71 year old female who has history of severe dementia, heavy alcoholic, presented today with chief complaint of worsening confusion. Daughter is at the bedside who is endorsing that because of her worsening functional status she was brought near her family. On Wednesday her son took her out for lunch and at that time she seemed to be around her baseline. And today when home health nurse checked on her she seemed very confused. She was sent to the hospital for evaluation. Patient is not able to provide any valuable information. She is denying chest pain, shortness of breath nausea or vomiting. She follows up with podiatry for her chronic wounds. Home health nurse checks on her wounds on weekly basis. Her last well-known time was around Wednesday. Diagnostics in the ER revealed right-sided weakness, right-sided facial droop, non-ST segment elevation [place] without ischemic or infarct changes, she seemed very confused only oriented to herself, not a candidate for any intervention troponin 1900, Covid antigen negative, she saturating well on room air, afebrile, CT head unremarkable, chest x-ray, UA unremarkable [facility] [place] had no bed available and she was transferred to outside facility. She was accepted by Dr. Levy at [facility] for management of non-ST segment elevation [place], acute stroke, delirium Physical Exam Narrative: EXAM NARRATIVE: Frail elderly female She is keeping her left eye closed, Right-sided facial droop, flat right nasolabial fold Weakness of right arm and right leg noted, EOMI, PERRLA Oriented to herself only S1, S2 no murmur appreciated Clinically looks dehydrated No acute respite distress no audible stridor or wheezing Lower extremity multiple laceration and wounds, no active cellulitis No joint swelling Urinary Catheter Management^: Mendoza: Cath Placed During This Visit: yes Urinary Catheter Date of Insertion: 05/19/21 Urinary Catheter Time of Insertion: 18:39 TS Data Data Completed and Pending: Completed Studies During Hospitalization Category Date Time Status CT head wo con* 7 0450 Urgent Cat Scan 05/19/21 17:48 Completed XR chest 1V mahamed ble [id number] Stat Exams 05/19/21 17:30 Completed XR foot LT min 3V * [id number] Stat Exams 05/19/21 18:19 Completed Pending at discharge Category Date Time Status Blood Culture Sta t Lab 05/19/21 18:33 Results Labs from last 24 hours 05/20/21 05/19/21 05/19/21 00:14 21:15 21:15 WBC RBC Hgb Hct MCV MCH MCHC RDW Plt Count MPV Neut % (Auto) Lymph % (Auto) Dickson % (Auto) Eos % (Auto) Baso % (Auto) Neut # (Auto) Lymph # (Auto) Dickson # (Auto) Eos # (Auto) Baso # (Auto) Nucleated RBC % (a uto) Nucleated RBCs # PT INR APTT Specimen Type Sample Site ABG pH ABG pCO2 ABG pO2 ABG HCO3 ABG Base Excess Smith Test Hematocrit O2 Delivery Device FiO2 Archery Instructor ID Sodium Potassium Chloride Carbon Dioxide Anion Gap BUN Creatinine GFR Calculation Glucose Calculated Osmolal ity Lactic Acid Calcium Total Bilirubin AST ALT Alkaline Phosphata se Creatine Kinase Troponin T Baselin e Troponin T 120 Min [place] 1629 H Delta Troponin T -347 L Troponin T Hi Sens 6Hr 1256 H Troponin T Hi Sens 6Hr Delta -720 L C-Reactive Protein NT-Pro-B Natriuret Pep Total Protein Albumin Globulin Vitamin B12 639 TSH 0.72 Urine Color Urine Appearance Urine pH Ur Specific Gravit y Urine Protein Urine Glucose (UA) Urine Ketones Urine Blood Urine Nitrate Urine Bilirubin Urine Urobilinogen Ur Leukocyte Destinee ase Urine RBC Urine WBC Ur Squamous Epith Cells Amorphous Sediment Urine Bacteria Hyaline Casts Coarse Granular Ca sts Urine Mucus Ethyl Alcohol SARS-CoV-2 Ag (Rap id) 05/19/21 05/19/21 05/19/21 19:04 19:04 18:33 WBC RBC Hgb Hct MCV MCH MCHC RDW Plt Count MPV Neut % (Auto) Lymph % (Auto) Dickson % (Auto) Eos % (Auto) Baso % (Auto) Neut # (Auto) Lymph # (Auto) Dickson # (Auto) Eos # (Auto) Baso # (Auto) Nucleated RBC % (a uto) Nucleated RBCs # PT 14.10 INR 1.06 APTT 37.6 H Specimen Type Sample Site ABG pH ABG pCO2 ABG pO2 ABG HCO3 ABG Base Excess Smith Test Hematocrit O2 Delivery Device FiO2 Archery Instructor ID Sodium Potassium Chloride Carbon Dioxide Anion Gap BUN Creatinine GFR Calculation Glucose Calculated Osmolal ity Lactic Acid 1.4 Calcium Total Bilirubin AST ALT Alkaline Phosphata se Creatine Kinase Troponin T Baselin e 1976 H* Troponin T 120 Min [place] Delta Troponin T Troponin T Hi Sens 6Hr Troponin T Hi Sens 6Hr Delta C-Reactive Protein NT-Pro-B Natriuret Pep Total Protein Albumin Globulin Vitamin B12 TSH Urine Color Urine Appearance Urine pH Ur Specific Gravit y Urine Protein Urine Glucose (UA) Urine Ketones Urine Blood Urine Nitrate Urine Bilirubin Urine Urobilinogen Ur Leukocyte Destinee ase Urine RBC Urine WBC Ur Squamous Epith Cells Amorphous Sediment Urine Bacteria Hyaline Casts Coarse Granular Ca sts Urine Mucus Ethyl Alcohol SARS-CoV-2 Ag (Rap id) 05/19/21 05/19/21 05/19/21 18:33 18:33 18:30 WBC 13.6 H RBC 3.57 L Hgb 12.1 Hct 36.2 L MCV 101.4 H MCH 33.9 MCHC 33.4 RDW 13.4 Plt Count 211 MPV 11.0 H Neut % (Auto) 78.1 Lymph % (Auto) 8.7 Dickson % (Auto) 12.5 Eos % (Auto) 0.0 Baso % (Auto) 0.1 Neut # (Auto) 10.64 H Lymph # (Auto) 1.2 Dickson # (Auto) 1.7 H Eos # (Auto) 0.0 Baso # (Auto) 0.0 Nucleated RBC % (a uto) 0 Nucleated RBCs # 0.0 PT INR APTT Specimen Type Sample Site ABG pH ABG pCO2 ABG pO2 ABG HCO3 ABG Base Excess Smith Test Hematocrit O2 Delivery Device FiO2 Archery Instructor ID Sodium 131 L Potassium 4.1 Chloride 98 Carbon Dioxide 19 L Anion Gap 18.1 BUN 11 Creatinine 0.4 L GFR Calculation Not Reportable Glucose 94 Calculated Osmolal ity 271 L Lactic Acid Calcium 8.2 L Total Bilirubin 0.6 AST 128 H ALT 23 Alkaline Phosphata se 61 Creatine Kinase 1170 H* Troponin T Baselin e Troponin T 120 Min [place] Delta Troponin T Troponin T Hi Sens 6Hr Troponin T Hi Sens 6Hr Delta C-Reactive Protein 7.2 H NT-Pro-B Natriuret Pep 69333 H Total Protein 5.9 L Albumin 3.4 L Globulin 2.5 Vitamin B12 TSH Urine Color Yellow Urine Appearance Clear Urine pH 5 Ur Specific Gravit y 1.020 Urine Protein Trace Urine Glucose (UA) Trace H Urine Ketones 1+ H Urine Blood Neg Urine Nitrate Negative Urine Bilirubin Neg Urine Urobilinogen Norm Ur Leukocyte Detsinee ase Negative Urine RBC None Urine WBC Rare Ur Squamous Epith Cells None Amorphous Sediment Not Reportable Urine Bacteria 1+ H Hyaline Casts 0-4 H Coarse Granular Ca sts 0-4 H Urine Mucus Trace Ethyl Alcohol < 10 SARS-CoV-2 Ag (Rap id) 05/19/21 05/19/21 18:30 18:10 WBC RBC Hgb Hct MCV MCH MCHC RDW Plt Count MPV Neut % (Auto) Lymph % (Auto) Dickson % (Auto) Eos % (Auto) Baso % (Auto) Neut # (Auto) Lymph # (Auto) Dickson # (Auto) Eos # (Auto) Baso # (Auto) Nucleated RBC % (a uto) Nucleated RBCs # PT INR APTT Specimen Type Arterial Sample Site Brachial, right ABG pH 7.47 H ABG pCO2 37.1 ABG pO2 66.9 L ABG HCO3 26.7 H ABG Base Excess 2.9 H Smith Test N/a Hematocrit 36.9 L O2 Delivery Device Room air FiO2 21.0 Archery Instructor ID glc Sodium Potassium Chloride Carbon Dioxide Anion Gap BUN Creatinine GFR Calculation Glucose Calculated Osmolal ity Lactic Acid Calcium Total Bilirubin AST ALT Alkaline Phosphata se Creatine Kinase Troponin T Baselin e Troponin T 120 Min [place] Delta Troponin T Troponin T Hi Sens 6Hr Troponin T Hi Sens 6Hr Delta C-Reactive Protein NT-Pro-B Natriuret Pep Total Protein Albumin Globulin Vitamin B12 TSH Urine Color Urine Appearance Urine pH Ur Specific Gravit y Urine Protein Urine Glucose (UA) Urine Ketones Urine Blood Urine Nitrate Urine Bilirubin Urine Urobilinogen Ur Leukocyte Destinee ase Urine RBC Urine WBC Ur Squamous Epith Cells Amorphous Sediment Urine Bacteria Hyaline Casts Coarse Granular Ca sts Urine Mucus Ethyl Alcohol SARS-CoV-2 Ag (Rap id) Negative Vitals: Last Vital Signs Temp 98.6 F 05/19/21 17:33 Pulse 79 05/20/21 04:14 Resp 16 05/20/21 04:14 BP 147/79 05/20/21 04:14 Pulse Ox 95 05/20/21 04:14 TS Medications Medications Home Medications acamprosate 333 mg tablet,delayed release 333 mg PO TID tab 01/20/21 [History Confirmed 05/19/21] bupropion HCl 75 mg tablet 75 mg PO BID 01/20/21 [History Confirmed 05/19/21] lisinopril 10 mg tablet 10 mg PO DAILY 01/20/21 [History Confirmed 05/19/21] meloxicam 15 mg tablet 15 mg PO DAILY #30 tab 01/20/21 [Rx Confirmed 05/19/21] simvastatin 20 mg tablet 20 mg PO DAILY 01/20/21 [History Confirmed 05/19/21] trazodone 50 mg tablet 50 mg PO DAILY 01/20/21 [History Confirmed 05/19/21] ciprofloxacin HCl 500 mg tablet 500 mg PO BID #14 tab 04/28/21 [Rx Confirmed 05/19/21] clindamycin HCl 300 mg capsule 300 mg PO TID #21 cap 04/28/21 [Rx Confirmed 05/19/21] Discharge Plan Discharge Patient Disposition: Admitted As Inpatient Clinical Impression: Confusion, Elevated brain natriuretic peptide (BNP) level, Acute non-ST elevation myocardial infarction (NSTEMI), Chronic dementia Condition: Stable Transfer Attestations Time Spent in Transfer Care*: less than 30 min Quality Metrics Clinical Quality Measures: During this hospital stay, did patient experience: Stroke Contraindication to Antithrombotic: Antithrombotic prescribed Contraindication to Anticoagulation: Medical contraindication Contraindication to Statin: Statin prescribed Contraindication to antithrombotic day 2: Antithrombotic given Contraindication to tPA: Treatment not indicated Coding Level of Care Code Acute Dry Wall Plasterer for Cipriano Moy Diagnoses Non-ST elevation [place] (NSTEMI) I21.4 Confusion R41.0 Acute non-ST elevation myocardial infarction (NSTEMI) I21.4
== END 2021-05-20 05:10 | disposition admitted as inpatient to this hospital (09) ==
PROVIDERS: Internal Medicine; Emergency Provider Nurse Practitioner Family; PCP Family Medicine
DX: F03.90 Unspecified dementia, unspecified severity, without behavioral disturbance, psychotic disturbance, mood disturbance, and anxiety (principal); I21.4 Non-ST elevation (NSTEMI) myocardial infarction; R79.89 Other specified abnormal findings of blood chemistry
CPT/HCPCS: 36600; 51702; 70450; 71045; 73630; 80053; 80307; 81001; 82550; 82607; 82803; 83605; 83880; 84443; 84484; 85025; 85610; 85730; 86140; 87040; 87205; 87426; 93005; 96372; 99285; J1650; J7040

== ENCOUNTER 2021-05-30 11:27 | Emergency (ER) | payer MEDICARE, SELFPAY ==
[2021-05-30 11:29] VITALS: BP 140/64; PULSE 67; RESP 14; O2SAT 96; BMI 19.3
--- NOTE | 2021-05-30 11:29 | ED_ITS ---
HPI - Altered Mental Status General: Chief Complaint: Altered Mental Status Stated Complaint: STROKE LIKE SYMPTOMS Time Seen by Provider: 05/30/21 11:28 History of Present Illness: HPI narrative: Ms. Manning is a 71-year-old lady with reported past medical history of strokes and dementia who presents to the emergency department for somewhat unclear reasons though reportedly possible new worsening of confusion and facial droop. Last known normal was 1700 on 05/29. History is otherwise limited by patient condition as mental status has marked impaired memory. She denies any complaints. As such there are no specific exacerbating, provoking, or relieving factors. The patient has not noticed anything. Per supplemental history provided by daughter initially via telephone and then in person patient was admitted after being transferred to [facility] with a stroke and found to have NSTEMI on 05/18. Prior to this her functional status was significantly better. It does not sound like any specific intervention was performed for NSTEMI. MD complaint: altered mental status and confusion Review of Systems General: Reports: ROS unobtainable due to mental status PFS ED PFSH: Medical History NSTEMI (non-ST elevated myocardial infarction) Physical Exam Narrative: EXAM NARRATIVE: GENERAL/CONSTITUTIONAL - well-appearing. No acute distress. [] Eyes - PERRL, no conjunctival injection ENMT - Atraumatic external nose and ears. Moist mucous membranes NECK - supple. trachea midline CARDIOVASCULAR - regular rate and rhythm. Peripheral pulses 2+ and equal RESPIRATORY -clear to auscultation bilaterally. No retractions or accessory muscle use. ABDOMEN/GI - Nontender/Nondistended. No tenderness to percussion or evidence of peritonitis MSK - Extremities without obvious deformity or tenderness to palpation SKIN - Warm, Dry NEURO - alert but disoriented. Patient has right-sided mild facial droop and right-sided weakness. PSYCH - Appropriate mood. Impaired cognition Course ED course: - Patient was seen and evaluated by me at bedside - Patient placed on cardiac monitors, IV access obtained - Initial evaluation notable for confused patient in no acute distress. There is facial asymmetry and mild right-sided deficits. The patient's baseline is somewhat unclear. - EKG was found to be abnormal, this was discussed with on-call chemical pathologist and no STEMI activation warranted at this time - Labs notable for no leukocytosis, mild thrombocytosis. Metabolic panel notable for mild hyponatremia and hypochloremia, IV fluids ordered. No evidence of urinary tract infection. - Imaging notable for no acute intracranial hemorrhage. CTA with what appears to be chronic vascular disease without LVO. ED read of chest x-ray without lobar consolidation - Upon serial reexamination after treatment the patient was fairly similar. She did become agitated and required 1 mg of Ativan which had desired therapeutic effect. - Repeat BMP similar. - Some records were obtained from [facility] however these did not appear complete from hospitalization. A limited copy of the EKG appeared grossly similar to initial EKG. - The patient's current medical state and ED findings were discussed with the patient's daughter at bedside. Unfortunately this is a complex situation with limited information. It is somewhat unclear if no intervention was warranted or if due to combination of stroke and NSTEMI further intervention was planned in the future regarding cardiac care. I offered to admit the patient however explained that other than trending labs likely no other acute intervention would be performed at this time which the daughter understood and declined at this time. I explained return precautions and follow-up plan, daughter verbalized understanding. All questions answered. - Patient discharged in satisfactory condition. Vital Signs: Vital signs: Vital Signs Pulse Rate 64 05/30/21 20:33 Respiratory Rate 13 05/30/21 20:33 Blood Pressure 147/96 05/30/21 20:33 Pulse Oximetry 92 05/30/21 20:33 MDM - Altered Mental Status Medical Records: Attestation: I reviewed the patient's medical records. Lab Data: Attestation: I reviewed the patient's lab results. Labs: Lab Results 05/30/21 05/30/21 05/30/21 Range/Units 12:44 12:44 12:44 WBC Cancelled Corrected WBC Cancelled RBC Cancelled Hgb Cancelled Hct Cancelled MCV Cancelled MCH Cancelled MCHC Cancelled RDW Cancelled Plt Count Cancelled MPV Cancelled Gran % Cancelled Neut % (Auto) Cancelled Lymph % (Auto) Cancelled Pacific % (Auto) Cancelled Eos % (Auto) Cancelled Baso % (Auto) Cancelled Neut # (Auto) Cancelled Lymph # (Auto) Cancelled Pacific # (Auto) Cancelled Eos # (Auto) Cancelled Baso # (Auto) Cancelled Absolute Gran (aut o) Cancelled Nucleated RBC % (a uto) Cancelled Nucleated RBCs # Cancelled Sodium Cancelled Potassium Cancelled Chloride Cancelled Carbon Dioxide Cancelled Anion Gap Cancelled BUN Cancelled Creatinine Cancelled GFR Calculation Cancelled Glucose Cancelled Calculated Osmolal ity Cancelled Lactate 1.6 (0.5-2.2) mmol/L Calcium Cancelled Total Bilirubin Cancelled AST Cancelled ALT Cancelled Alkaline Phosphata se Cancelled Troponin T Baselin e Troponin T 120 Min standing rock Delta Troponin T Total Protein Cancelled Albumin Cancelled Globulin Cancelled TSH Cancelled Urine Color (Yellow) Urine Appearance (CLEAR) Urine pH (5-7) Ur Specific Gravit y (1.005-1.030) Urine Protein (Negative) Urine Glucose (UA) (Normal) Urine Ketones (Negative) Urine Blood (Negative) Urine Nitrate (Negative) Urine Bilirubin (Negative) Urine Urobilinogen (Negative) mg/dL Ur Leukocyte Destinee ase (Negative) 05/30/21 05/30/21 05/30/21 Range/Units 12:44 12:44 12:44 WBC Corrected WBC RBC Hgb Hct MCV MCH MCHC RDW Plt Count MPV Gran % Neut % (Auto) Lymph % (Auto) Pacific % (Auto) Eos % (Auto) Baso % (Auto) Neut # (Auto) Lymph # (Auto) Pacific # (Auto) Eos # (Auto) Baso # (Auto) Absolute Gran (aut o) Nucleated RBC % (a uto) Nucleated RBCs # Sodium 125 L Potassium 4.9 Chloride 89 L Carbon Dioxide 22 Anion Gap 18.9 BUN 13 Creatinine 0.5 GFR Calculation Not Reportable Glucose 85 Calculated Osmolal ity 259 L Lactate (0.5-2.2) mmol/L Calcium 9.2 Total Bilirubin 0.3 AST 23 ALT 23 Alkaline Phosphata se 80 Troponin T Baselin e Cancelled 58 H Troponin T 120 Min standing rock Delta Troponin T Total Protein 7.3 Albumin 4.2 Globulin 3.1 TSH 2.39 Urine Color (Yellow) Urine Appearance (CLEAR) Urine pH (5-7) Ur Specific Gravit y (1.005-1.030) Urine Protein (Negative) Urine Glucose (UA) (Normal) Urine Ketones (Negative) Urine Blood (Negative) Urine Nitrate (Negative) Urine Bilirubin (Negative) Urine Urobilinogen (Negative) mg/dL Ur Leukocyte Destinee ase (Negative) 05/30/21 05/30/21 05/30/21 Range/Units 13:24 14:43 16:08 WBC 8.4 Corrected WBC RBC 3.95 L Hgb 13.0 Hct 39.0 MCV 98.7 MCH 32.9 MCHC 33.3 RDW 13.0 Plt Count 431 H MPV 10.6 H Gran % Neut % (Auto) 68.3 Lymph % (Auto) 13.6 Pacific % (Auto) 15.2 Eos % (Auto) 1.5 Baso % (Auto) 1.0 Neut # (Auto) 5.75 Lymph # (Auto) 1.1 Pacific # (Auto) 1.3 H Eos # (Auto) 0.1 Baso # (Auto) 0.1 Absolute Gran (aut o) Nucleated RBC % (a uto) 0 Nucleated RBCs # 0.0 Sodium Potassium Chloride Carbon Dioxide Anion Gap BUN Creatinine GFR Calculation Glucose Calculated Osmolal ity Lactate (0.5-2.2) mmol/L Calcium Total Bilirubin AST ALT Alkaline Phosphata se Troponin T Baselin e Troponin T 120 Min standing rock Cancelled 54.80 H Delta Troponin T Cancelled -3.20 L Total Protein Albumin Globulin TSH Urine Color (Yellow) Urine Appearance (CLEAR) Urine pH (5-7) Ur Specific Gravit y (1.005-1.030) Urine Protein (Negative) Urine Glucose (UA) (Normal) Urine Ketones (Negative) Urine Blood (Negative) Urine Nitrate (Negative) Urine Bilirubin (Negative) Urine Urobilinogen (Negative) mg/dL Ur Leukocyte Destinee ase (Negative) 05/30/21 05/30/21 Range/Units 18:00 18:18 WBC Corrected WBC RBC Hgb Hct MCV MCH MCHC RDW Plt Count MPV Gran % Neut % (Auto) Lymph % (Auto) Pacific % (Auto) Eos % (Auto) Baso % (Auto) Neut # (Auto) Lymph # (Auto) Pacific # (Auto) Eos # (Auto) Baso # (Auto) Absolute Gran (aut o) Nucleated RBC % (a uto) Nucleated RBCs # Sodium 125 L Potassium 4.5 Chloride 92 L Carbon Dioxide 22 Anion Gap 15.5 BUN 12 Creatinine 0.4 L GFR Calculation Not Reportable Glucose 86 Calculated Osmolal ity 259 L Lactate (0.5-2.2) mmol/L Calcium 8.8 Total Bilirubin AST ALT Alkaline Phosphata se Troponin T Baselin e Troponin T 120 Min standing rock Delta Troponin T Total Protein Albumin Globulin TSH Urine Color Straw (Yellow) Urine Appearance Clear (CLEAR) Urine pH 7 (5-7) Ur Specific Gravit y 1.000 L (1.005-1.030) Urine Protein Neg (Negative) Urine Glucose (UA) Norm (Normal) Urine Ketones Negative (Negative) Urine Blood Neg (Negative) Urine Nitrate Negative (Negative) Urine Bilirubin Neg (Negative) Urine Urobilinogen Norm (Negative) mg/dL Ur Leukocyte Destinee ase Negative (Negative) Imaging Data^: CXR: Attestation: I personally reviewed and interpreted this imaging study as follows: My impression: No lobar consolidation. No pneumothorax. Radiologist's impression: Atherosclerosis and cardiomegaly EKG Data^: EKG 1: Attestation: I personally reviewed and interpreted this EKG as follows: EKG interpretation date: 05/30/21 EKG interpretation time: 13:18 Prior EKG tracings: not available for review Ischemic changes: non-specific ST-T wave changes Interpretation: Twelve-lead EKG shows a regular sinus rhythm at a rate of 65. DC interval 180, QRS duration 98, QTc 405. Left axis deviation. Interpretation: Sinus rhythm. Concerning ST segments noted in V1 through V3 Other EKG comments: Texted picture of EKG with identifying information removed at approximately 1318, discussed at 1338 EKG 2: Attestation: I personally reviewed and interpreted this EKG as follows: EKG interpretation date: 05/30/21 EKG interpretation time: 14:59 Prior EKG tracings: available for review Ischemic changes: non-specific ST-T wave changes Interpretation: Twelve-lead EKG shows a regular sinus rhythm at a rate of 66. DC interval 191, QRS duration 104, QTc 443. Left axis deviation. Interpretation: Sinus rhythm with PVCs. There has been morphology change in lead V3 compared to prior. EKG 3: Attestation: I personally reviewed and interpreted this EKG as follows: EKG interpretation date: 05/30/21 EKG interpretation time: 17:45 Prior EKG tracings: available for review Ischemic changes: non-specific ST-T wave changes Interpretation: Twelve-lead EKG shows a regular sinus rhythm at a rate of 67. DC interval 170, QRS duration 103, QTc 415. Left axis deviation. Interpretation: Sinus rhythm, similar to EKG 2. Discharge Plan Discharge Patient Disposition: [facility] Clinical Impression: Altered mental status Condition: Stable Discharge Orders: Discharge ED (Routine); Ordered 05/30/21 Ordered By: Dewayne Hunt Referrals: Lidya Porter MD [Primary Care Provider] - Discharge Diet: Advance as tolerated Discharge Activity: Resume usual activity Patient Instructions: Altered Mental Status (ED) Activity Restrictions/Additional Instructions: Thank you for visiting the emergency department. You were seen and evaluated for concern over new neurologic symptoms. The exact cause of this is somewhat unclear. You have a complex recent medical history and we recommend follow-up with your primary care provider and cardiology team. Please return to the emergency department for anything that you are concerned about and feel needs emergency department evaluation Coding Level of Care Code ED Truck Greaser for Cipriano Moy
--- NOTE | 2021-05-30 11:30 | CT_ITS ---
WS: [id number] CT HEAD NONCONTRAST HISTORY: stroke like symptoms TECHNIQUE: Contiguous axial imaging performed through the brain in 2.5 mm imaging. Bone and soft tiss ue windows. Sagittal and coronal reformats reviewed. All CT scans at [facility] use at le ast one of these dose optimization techniques: automated exposure control; mA and/or kV adjustment pe r patient size (includes targeted exams where dose is matched to clinical indication); or iterative r econstruction. DLP: 860.78 mGy-cm. COMPARISON: 05/19/2021 No acute intracranial hemorrhage, midline shift or mass effect. Mild atrophy and chronic ischemic disease. Small lacunar infarct LEFT basal ganglia. There is also bi lateral cerebellar atrophy. Ventricles: Mild ventriculomegaly due to atrophy. Paranasal sinuses: As visualized are clear. Mastoid air cells: Well pneumatized. Calvarium and scalp: Prior repair of the RIGHT orbit and anterior RIGHT maxillary sinus. CT/CT head wo con* [id number] IMPRESSION: 1. No acute intracranial hemorrhage or edema. 2. Mild atrophy and chronic ischemic disease and lacunar infarcts as above. No interval change.
--- NOTE | 2021-05-30 11:38 | CTR_ITS ---
PROCEDURE INFORMATION: Exam: CT Angiography Head With Contrast, Arteriography Exam date and time: 05/30/2021 11:38 AM Age: 71 years old Clinical indication: Other: Stroke like symptoms; Additional info: Stroke like symptoms lkn [id number] TECHNIQUE: Imaging protocol: Computed tomography angiography of the head with contrast. Exam focused on the arteries. 3D rendering (Not supervised by radiologist): MIP and/or 3D reconstructed images were created by the technologist. Radiation optimization: All CT scans at this facility use at least one of these dose optimization techniques: automated exposure control; mA and/or kV adjustment per patient size (includes targeted exams where dose is matched to clinical indication); or iterative reconstruction. Contrast material: OMNI 350; Contrast volume: 95 ml; Contrast route: INTRAVENOUS (IV); COMPARISON: CT head wo con* [id number] 05/30/2021 11:21 AM RADIATION DOSE METRICS: Total DLP (mGy-cm): 1184.25 FINDINGS: ANTERIOR CIRCULATION: Right internal carotid artery: Severe stenosis of the right internal carotid artery in cavernous portion with calcified plaque. Right middle cerebral artery: Unremarkable. No occlusion or significant stenosis. No aneurysm. Right anterior cerebral artery: Unremarkable. No occlusion or significant stenosis. No aneurysm. Left internal carotid artery: Severe stenosis of the left internal carotid artery in the cavernous portion with calcified plaque. Left middle cerebral artery: Unremarkable. No occlusion or significant stenosis. No aneurysm. Left anterior cerebral artery: Unremarkable. No occlusion or significant stenosis. No aneurysm. POSTERIOR CIRCULATION: Right vertebral artery: Unremarkable. No occlusion or significant stenosis. No aneurysm. Left vertebral artery: Severe multifocal stenosis of the left vertebral artery with calcified/noncalcified plaque. The distal left vertebral artery not visualized, likely occluded. Basilar artery: Unremarkable. No occlusion or significant stenosis. No aneurysm. Right posterior cerebral artery: Unremarkable. No occlusion or significant stenosis. No aneurysm. Left posterior cerebral artery: Unremarkable. No occlusion or significant stenosis. No aneurysm. IMPRESSION: 1. Severe multifocal stenosis of the left vertebral artery with calcified/noncalcified plaque and the distal portion not visualized, likely occluded. 2. Severe stenosis of bilateral internal carotid arteries in the cavernous portion with calcified plaque. PROCEDURE INFORMATION: Exam: CT Angiography Neck With Contrast Exam date and time: 05/30/2021 11:38 AM Age: 71 years old Clinical indication: Other: Stroke like symptoms; Additional info: Stroke like symptoms lkn [id number] TECHNIQUE: Imaging protocol: Computed tomography angiography of the neck with contrast. 3D rendering (Not supervised by radiologist): MIP and/or 3D reconstructed images were created by the technologist. Radiation optimization: All CT scans at this facility use at least one of these dose optimization techniques: automated exposure control; mA and/or kV adjustment per patient size (includes targeted exams where dose is matched to clinical indication); or iterative reconstruction. Contrast material: OMNI 350; Contrast volume: 95 ml; Contrast route: INTRAVENOUS (IV); COMPARISON: CT head wo con* [id number] 05/30/2021 11:21 AM RADIATION DOSE METRICS: Total DLP (mGy-cm): 1184.25 FINDINGS: Right common carotid artery: No stenosis. No dissection or occlusion. Right internal carotid artery: There is approximately 74% stenosis of the proximal right internal carotid artery with calcified/noncalcified plaque. Right external carotid artery: Severe stenosis of the right external carotid artery with calcified/noncalcified plaque. Left common carotid artery: No stenosis. No dissection or occlusion. Left internal carotid artery: There is approximately 70% stenosis of the proximal left internal carotid artery with calcified/noncalcified. Left external carotid artery: Severe stenosis of the left external carotid artery with calcified/noncalcified plaque in the proximal region. Right vertebral artery: Mild multifocal stenosis of the right vertebral artery with calcified plaque. Left vertebral artery: Moderate to severe multifocal stenosis of the left vertebral artery with calcified plaque. Soft tissues: Normal. No significant soft tissue swelling. Bones/joints: No acute fracture. CT/CT angio headneck* [id number] IMPRESSION: 1. Right: Severe stenosis of the right external carotid artery with calcified/noncalcified plaque. There is approximately 74% stenosis of the proximal right internal carotid artery with calcified/noncalcified plaque. Mild multifocal stenosis of the right vertebral artery. 2. Left: Severe stenosis of the left external carotid artery with the calcified/noncalcified plaque. Approximately 70% stenosis of the proximal left internal carotid artery with calcified/noncalcified plaque. Moderate to severe multifocal stenosis of the left vertebral artery with calcified plaque. REFERENCES: NASCET CRITERIA. The degree of internal carotid artery stenosis is based on NASCET criteria. Normal is no stenosis. Mild is less than 50% stenosis. Moderate is 50-69% stenosis. Severe is 70% to 99% stenosis. Total occlusion is no detectable patent lumen. Radiation Dose CTDIVOL = (mGy): DLP = 1184.25~1184.25 (mGy-cm)
--- NOTE | 2021-05-30 11:38 | XR_ITS ---
WS: [id number] Portable AP upright chest, 05/30/2021 Clinical Data: AMS, stroke like symptoms Comparison: None. Findings: No pneumonia or pneumothorax is seen. No nodules, masses or effusions are noted. The heart is enlarged. The aortic arch and descending aorta show tortuosity. The pulmonary vascularity is not r emarkable. XR/XR chest 1V portable [id number] Impression: Atherosclerosis and cardiomegaly.
--- NOTE | 2021-05-30 11:40 | ECG_ITS ---
[facility] ED Test Date: 2021-05-30 Pat Name: Ada Manning Department: Room: Gender: Female [place] Seamer: : 1950 Requested By: Howard Suggs Order Number: [id number] Rezno MD: Clari Leyva M.D. Measurements Intervals [place] Rate: 65 P: 32 SC: 180 QRS: -19 QRSD: 98 T: 79 QT: 393 QTc: 410 Interpretive Statements SINUS RHYTHM POSSIBLE LEFT ATRIAL ENLARGEMENT [-0.1mV P WAVE IN V1/V2] LEFT VENTRICULAR HYPERTROPHY AND ST-T CHANGE [VOLTAGE CRITERIA PLUS ST/T ABNORMALITY] INFERIOR MYOCARDIAL INFARCTION [40+ ms Q WAVE AND/OR ST/T ABNORMALITY IN II/aVF], OF INDETERMINATE AGE No previous ECG available for comparison Electronically Signed On 06-03-2021 16:13:08 CDT by Clari Leyva M.D. [id number]
[2021-05-30 12:43] VITALS: BP 128/77; O2SAT 97
[2021-05-30 13:16] LABS: Lactate (Lactic Acid level) 1.6 mmol/L (0.5-2.2)
[2021-05-30] MEDS: LORazepam 2 mg/mL INJ 1 mL 1 MG IVP (13:38)
[2021-05-30 13:40] LABS: Alanine Aminotransferase 23 U/L (0-33); Albumin Level 4.2 g/dL (3.5-5.2); Alkaline Phosphatase 80 IU/L (35-105); Anion Gap 18.9 (5-19); Aspartate Amino Transferase 23 U/L (0-32); Blood Urea Nitrogen 13 mg/dL (8-23); Calcium 9.2 mg/dL (8.5-10.5); Carbon Dioxide 22 mmol/L (22-29); Chloride 89 mmol/L (98-107); Creatinine Clr Calc Pharmacy 48.7361; Globulin 3.1 g/dL (1.3-4.6); Glucose 85 mg/dL (65-115); Osmolality Calculated 259 mOsm/kg (285-295); Potassium 4.9 mmol/L (3.5-5.1); Sodium 125 mmol/L (136-145); Thyroid Stimulating Hormone 2.39 uIU/mL (0.27-4.20); Total Bilirubin 0.3 mg/dL (0.15-1.2); Total Protein 7.3 g/dL (6.6-8.7)
--- NOTE | 2021-05-30 13:40 | ECG_ITS ---
[facility] Test Date: 2021-05-30 Pat Name: Ada Manning Department: Room: Gender: Female Information Resources Director: : 1950 Requested By: Howard Suggs Order Number: [id number] Reading MD: YONAS MATTHEW Measurements Intervals [place] Rate: 79 P: 44 GA: 211 QRS: -14 QRSD: 102 T: 26 QT: 428 QTc: 493 Interpretive Statements SINUS RHYTHM WITH FIRST DEGREE AV BLOCK WITH OCCASIONAL VENTRICULAR PREMATURE COMPLEXES LEFT VENTRICULAR HYPERTROPHY AND ST-T CHANGE [VOLTAGE CRITERIA PLUS ST/T ABNORMALITY] INFERIOR MYOCARDIAL INFARCTION , PROBABLY OLD [40+ ms Q WAVE AND/OR ST/T ABNORMALITY IN II/aVF] Compared to ECG 05/30/2021 13:10:21 First degree AV block now present ST (T wave) deviation still present Myocardial infarct finding still present Electronically Signed On 05-30-2021 19:27:24 CDT by YONAS MATTHEW [id number]
[2021-05-30 13:52] LABS: Troponin(5th) Baseline 58 ng/L (0-10)
[2021-05-30 13:56] LABS: Basophils # 0.1 10^3/uL (0.0-0.1); Eosinophils # 0.1 10^3/uL (0.0-0.8); Eosinophils % 1.5 %; Lymphocytes # 1.1 10^3/uL (0.8-4.8); Lymphocytes % 13.6 %; Mean Corpuscular HGB Conc 33.3 g/dL (30.0-36.0); Mean Corpuscular Hemoglobin 32.9 pg (28.0-34.0); Mean Corpuscular Volume 98.7 fl (81-99); Mean Platelet Volume 10.6 fL (7.4-10.4); Monocytes # 1.3 10^3/uL (0.2-0.9); Monocytes % 15.2 %; Neutrophils # 5.75 10^3/uL (1.8-7.7); Neutrophils % 68.3 %; Nucleated Red Blood Cells % 0 %; Platelet Count 431 10^3/cmm (130-400); Red Blood Count 3.95 10^6/uL (4.1-5.3); White Blood Count 8.4 10^3/uL (4.0-10.0)
[2021-05-30] MEDS: iohexol 350 mg/mL 100 mL Btl IV (14:05)
[2021-05-30 17:02] VITALS: BP 147/82; PULSE 63; RESP 12; O2SAT 100
[2021-05-30 18:14] LABS: Add Urine Microscopic? NO; Charge for UA Resulting for Rev
[2021-05-30 18:18] LABS: Bilirubin Urine Neg (Negative); Blood Urine Neg (Negative); Glucose Urine UA Norm (Normal); Ketones Urine Negative (Negative); Leukocyte Esterase Urine Negative (Negative); Nitrate Urine Negative (Negative); Protein Urine Neg (Negative); Urine Appearance Clear (CLEAR); Urine Color Straw (Yellow); Urobilinogen Urine Norm (Negative); pH Urine 7 (5-7)
[2021-05-30 18:37] VITALS: BP 147/96; PULSE 64; RESP 13; O2SAT 92
[2021-05-30 18:45] LABS: Anion Gap 15.5 (5-19); Blood Urea Nitrogen 12 mg/dL (8-23); Calcium 8.8 mg/dL (8.5-10.5); Carbon Dioxide 22 mmol/L (22-29); Chloride 92 mmol/L (98-107); Creatinine Clr Calc Pharmacy 48.7361; Glucose 86 mg/dL (65-115); Osmolality Calculated 259 mOsm/kg (285-295); Potassium 4.5 mmol/L (3.5-5.1); Sodium 125 mmol/L (136-145)
[2021-05-30 20:33] VITALS: BP 147/96; PULSE 64; RESP 13; O2SAT 92
== END 2021-05-30 20:35 ==
PROVIDERS: Emergency Provider Emergency Medicine; PCP Family Medicine
DX: R41.82 Altered mental status, unspecified (principal); F03.90 Unspecified dementia, unspecified severity, without behavioral disturbance, psychotic disturbance, mood disturbance, and anxiety; E87.1 Hypo-osmolality and hyponatremia; E87.8 Other disorders of electrolyte and fluid balance, not elsewhere classified; D69.6 Thrombocytopenia, unspecified; I25.2 Old myocardial infarction; Z86.73 Personal history of transient ischemic attack (TIA), and cerebral infarction without residual deficits
CPT/HCPCS: 70450; 70496; 70498; 71045; 80048; 80053; 81003; 83605; 84443; 84484; 85025; 93005; 96374; 99284; J2060; Q9967